=== PATIENT | female | born 1975 | race Caucasian/White ===

== ENCOUNTER → 2019-10-04 | Outpatient (CLI) | payer SELFPAY ==
[~2019-10-04] MED LIST: CLIN300 PO; Florastor250 MG PO; IBUP800 PO; ONDA4ODT PO; Tylenol325 MG PO
[2019-10-06 13:07] LABS: HPV 16 Negative (Negative); HPV 18 Negative (Negative); HPV OTHER HR TYPES Negative (Negative)
== END ==
LOC: LAB 18:05 → LAB SHORT 18:05
PROVIDERS: Nurse Practitioner Family
DX: Z12.4 Encounter for screening for malignant neoplasm of cervix (principal)
CPT/HCPCS: 87624; G0123